=== PATIENT | female | born 1945 | race American Indian/Alaskan Native ===

== ENCOUNTER 2016-04-06 21:14 | Emergency (ER) | payer MEDICARE ==
[2016-04-06 22:53] VITALS: BP 147/80
--- NOTE | 2016-04-06 23:38 | Emergency Department Report ---
ED Upper Extremity Inj HPI - General Chief Complaint: Extremity Injury, Upper Stated Complaint: FALL/ELBOW PAIN Time Seen by Provider: 04/06/16 23:31 Source: patient Mode of arrival: Ambulatory Limitations: No Limitations - History of Present Illness Initial Comments: This is a pleasant 70-year-old who reports slipping while going outside to her car tonight falling backward and landing on her elbow. She immediately knew she had done some damage to her elbow. She required assistance to get back to her feet. She denies any other significant injury. Some mild scrapes are noted to the knees but that is it. No head trauma no neck trauma. Patient does complain of pain in the left elbow. She is visiting from out of town. She denies any prior trauma to this elbow that she is aware of. MD Complaint: Injury to:: left, elbow Onset/Timin -: minutes(s) Other Extremity Injury: Elbow: Left Other Injuries: none Handedness: right Place: other (friends house) Severity scale (0 -10): 7 Improves With: immobilization Worsens With: movement of extremity Context: fall Associated Symptoms: denies: weakness, numbness, neck pain, suspects foreign body, nausea/vomiting - Related Data Home Medications Medication Instructions Recorded Confirmed Last Taken Cetirizine HCl [ZyrTEC] 10 mg PO DAILY 04/06/16 04/06/16 04/06/16 Losartan/Hydrochlorothiazide 1 tab PO QDAY 04/06/16 04/06/16 04/06/16 [Hyzaar 100-25 TAB] Omeprazole Magnesium [PriLOSEC Otc] 20 mg PO QDAY 04/06/16 04/06/16 04/06/16 Previous Rx's Medication Instructions Recorded Last Taken Type oxyCODONE /ACETAMINOPHEN [Percocet 1 tab PO ONCE #20 tablet 04/06/16 Unknown Rx 5/325 mg] Allergies Allergy/AdvReac Type Severity Reaction Status Date / Time No Known Allergies Allergy Verified 04/06/16 21:39 ED Review of Systems ROS: Stated complaint: FALL/ELBOW PAIN Other details as noted in HPI Constitutional: denies: chills, fever Eyes: denies: eye pain, eye discharge, vision change ENT: denies: ear pain, throat pain Respiratory: denies: cough, shortness of breath, wheezing Cardiovascular: denies: chest pain, palpitations Endocrine: no symptoms reported Gastrointestinal: denies: abdominal pain, nausea, diarrhea Genitourinary: denies: urgency, dysuria, discharge Musculoskeletal: joint swelling, other (L elbow pains). denies: back pain, arthralgia Skin: denies: rash, lesions Neurological: denies: headache, weakness, paresthesias Psychiatric: denies: anxiety, depression Hematological/Lymphatic: denies: easy bleeding, easy bruising ED Past Medical Hx - Past Medical History Previous Medical History?: Yes Hx GERD: Yes Hx HIV: Yes Additional medical history: SEASONAL ALLERGIES - Surgical History Past Surgical History?: Yes Additional Surgical History: TUBAL LIGATION - Social History Smoking Status: Never Smoker Substance Use Type: None - Medications Home Medications: Home Medications Medication Instructions Recorded Confirmed Last Taken Type Cetirizine HCl [ZyrTEC] 10 mg PO DAILY 04/06/16 04/06/16 04/06/16 History Losartan/Hydrochlorothiazide 1 tab PO QDAY 04/06/16 04/06/16 04/06/16 History [Hyzaar 100-25 TAB] Omeprazole Magnesium [PriLOSEC Otc] 20 mg PO QDAY 04/06/16 04/06/16 04/06/16 History oxyCODONE /ACETAMINOPHEN [Percocet 1 tab PO ONCE #20 tablet 04/06/16 Unknown Rx 5/325 mg] ED Physical Exam - General Limitations: No Limitations General appearance: alert - Head Head exam: Present: atraumatic, normal inspection - Eye Eye exam: Present: normal appearance. Absent: scleral icterus - ENT ENT exam: Present: normal exam, mucous membranes dry - Neck Neck exam: Present: normal inspection, full ROM. Absent: tenderness - Respiratory Respiratory exam: Present: normal lung sounds bilaterally. Absent: wheezes, rales - Cardiovascular Cardiovascular Exam: Present: regular rate, normal rhythm - Extremities Exam Extremities exam: Present: other (left elbow demonstrating significant edema globally. There is mottled ecchymosis noted as well. Patient has significant tenderness with palpation of the olecranon. Redness is noted in palpation down the humerus as well on the lower aspect. In the antecubital region there is minimal tenderness. Palpable pulses noted.. Patient intolerant to any movement of the elbow. She demonstrates excellent intrinsic movement of the hand however as well as flexion and extension and rotation of the hand at the wrist.) - Neurological Exam Neurological exam: Present: alert, oriented X3 - Psychiatric Psychiatric exam: Present: normal affect, normal mood ED Course Vital Signs 04/06/16 04/06/16 04/06/16 21:39 22:37 22:44 Temperature 98.4 F Pulse Rate 93 H 75 Respiratory 18 18 18 Rate Blood Pressure 154/97 Blood Pressure 147/80 [Right] O2 Sat by Pulse 100 98 98 Oximetry - Reevaluation(s) Reevaluation #1: 04/07/16 06:32 X-ray does demonstrate a displaced fracture of the olecranon. Patient was placed in a long-arm splint as well as a sling she was given pain medication here as well. I did offer to refer her to her orthopedist here but given that she is from out of town and she wishes to follow-up with someone in [facility] where she has from. It is reasonable. I do not suspect this will be a surgical issue. No other concerning findings noted. No other specific injuries resulting from this fall are reported as well. She has a ride home tonight. ED Medical Decision Making - Radiology Data interpreted by me: Olecranon fracture with displacement and mild angulation. Soft tissue edema is noted as well. No dislocation noted. Critical care attestation.: If time is entered above; I have spent that time in minutes in the direct care of this critically ill patient, excluding procedure time. ED Disposition Clinical Impression: Olecranon fracture Qualifiers: Encounter type: initial encounter Fracture type: closed Laterality: left Qualified Code(s): S52.022A - Displaced fracture of olecranon process without intraarticular extension of left ulna, initial encounter for closed fracture Disposition: DISCHARGED TO HOME OR SELFCARE Is pt being admited?: No Does the pt Need Aspirin: No Condition: Stable Instructions: Elbow Fracture in Adults (ED) Additional Instructions: Follow with an orthopedist next week. No use with Left arm. Wear sling for comfort. Keep elbow elevated as possible over the next 2-3 days. Ice intermittently for the next 48 hours. Prescriptions: oxyCODONE /ACETAMINOPHEN [Percocet 5/325 mg] 1 tab PO ONCE #20 tablet Referrals: RICARDO VILLELA MD [Primary Care Provider] - 3-5 Days Time of Disposition: 23:50
[2016-04-06] MEDS ORDERED: PERCOCET 5/325 PO ONE (23:47)
[2016-04-07] MEDS ORDERED: TORADOL IM ONE (00:27)
--- NOTE | 2016-04-07 09:19 | XRay Report ---
Left elbow 3 views: History: Pain. Findings: The fracture noted at the base of the olecranon process of ulna with displacement of the fracture fragments. Articular surfaces appears unremarkable. No dislocation. Impression: Fracture olecranon process ulna.
== END 2016-04-07 00:38 | disposition home or self-care (01) ==
LOC: ED 21:14
DX: S52.022A Displaced fracture of olecranon process without intraarticular extension of left ulna, initial encounter for closed fracture (principal); K21.9 Gastro-esophageal reflux disease without esophagitis; Z21 Asymptomatic human immunodeficiency virus [HIV] infection status; W01.0XXA Fall on same level from slipping, tripping and stumbling without subsequent striking against object, initial encounter; Y93.9 Activity, unspecified; Y92.9 Unspecified place or not applicable; Y99.9 Unspecified external cause status
CPT/HCPCS: 29105; 73080; 96372; 99284; J1885